=== PATIENT | male | born 1985 | race Caucasian/White ===

== ENCOUNTER 2018-08-12 14:47 | Emergency (ER) | payer OTHER ==
[~2018-08-12] VITALS: Ht 177.8 cm; Wt 120.0 kg
[2018-08-12 14:55] VITALS: BP 132/82
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
== END 2018-08-12 16:03 | disposition home or self-care (01) ==
LOC: ER 14:47
DX: Z77.21 Contact with and (suspected) exposure to potentially hazardous body fluids (principal); K21.9 Gastro-esophageal reflux disease without esophagitis
CPT/HCPCS: 36415; 86703; 86704; 86705; 86706; 86709; 86803; 87340; 99283

== ENCOUNTER 2021-10-08 05:38 | Emergency (ER) | payer OTHER ==
[~2021-10-08] VITALS: Ht 172.7 cm; Wt 123.2 kg
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
[2021-10-08] MEDS ORDERED: PRED50TA PO (06:25)
[2021-10-08] MEDS ORDERED: predniSONE 10 MG TABLET. PO ONE (06:30)
[2021-10-08 06:40] VITALS: BP 152/80
--- NOTE | 2021-10-08 06:46 | RAD ---
EXAM: LEFT SHOULDER 3 VIEWS. HISTORY: Left shoulder pain after injury. COMPARISON: None. FINDINGS: No fractures are identified. Glenohumeral joint spaces and alignment are maintained. The di stal articular surface of the clavicle is mildly irregular. Acromioclavicular joint spaces and alignm ent are maintained. A small loose body projects anterior to the proximal humeral metaphysis and may b e within the bicipital tendon sheath or at the anterior deltoid insertion. IMPRESSION: 1. No fracture or malalignment. 2. Irregularity of the distal clavicle suggests solid osteolysis. Correlate for repetitive trauma, in flammatory arthritis or hyperparathyroidism. 3. Small loose body within the proximal bicipital tendon sheath versus enthesopathic ossification. Electronically signed by: Mary Mercedes MD (10/08/2021 6:44 AM) [id number]
== END 2021-10-08 06:43 | disposition home or self-care (01) ==
LOC: ER 05:38
DX: M25.512 Pain in left shoulder (principal); K21.9 Gastro-esophageal reflux disease without esophagitis
CPT/HCPCS: 73030; 99283; J7512